=== PATIENT | male | born 1955 | race Caucasian/White ===

== ENCOUNTER 2017-05-21 00:10 | Day surgery (SDC) | payer MEDICARE, SELFPAY ==
[~2017-05-21 00:10] MED LIST: 5fu IV; ALBU90OI INH; Azithromycin250 MG PO; B Complex1 EAC2; CYAN100 PO; DULO60; FILG480I; GABA300 PO; IBUP400; OXALIPLATIN IV; SERT100; SERT100 PO; SERT50 PO; TERB24TC TOP; TIOT18 INH; Zoloft100 MG PO
[2017-05-21] MEDS ORDERED: PRAZ1 PO (09:10)
== END 2017-05-21 09:07 | disposition home or self-care (01) ==
LOC: ATC 00:10
DX: C20 Malignant neoplasm of rectum (principal); K12.30 Oral mucositis (ulcerative), unspecified; R91.1 Solitary pulmonary nodule; N39.0 Urinary tract infection, site not specified; Z79.899 Other long term (current) drug therapy
CPT/HCPCS: 96523; J1642

== ENCOUNTER 2017-06-15 08:49 | Inpatient (IN) | payer MEDICARE, SELFPAY ==
[~2017-06-15] VITALS: Ht 175.3 cm; Wt 88.0 kg
[~2017-06-15 08:49] MED LIST changes: +PRAZ1 PO
[2017-07-03] MEDS ORDERED: Desyrel50 MG PO (14:01)
[2017-07-03] MEDS ORDERED: Hair, Skin & N1 EACH PO (14:02)
[2017-07-03] MEDS ORDERED: PROBIOTIC1 EAC1 PO (14:03)
[2017-07-23] MEDS ORDERED: TIOT18 INH (10:41)
[2017-07-25 04:48] LABS: BASOPHILS PERCENT AUTO 0 % (0-2); EOSINOPHILS PERCENT AUTO 0 % (0-6); Hematocrit 39.1 % (37.0-53.0); Hemoglobin 13.4 g/dL (13.5-17.5); IMMATURE GRAN ABSOLUTE AUTO 0.03 K/mm3 (0.00-0.10); IMMATURE GRAN PERCENT AUTO 0 % (0-1); LYMPHOCYTES ABSOLUTE AUTO 1.14 K/mm3 (0.84-5.20); LYMPHOCYTES PERCENT AUTO 11 % (21-46); MONOCYTES ABSOLUTE AUTO 0.93 K/mm3 (0.16-1.47); MONOCYTES PERCENT AUTO 9 % (4-13); Mean Corpuscular HGB 31.2 pg (26.0-34.0); Mean Corpuscular HGB Conc 34.3 g/dL (31.5-36.5); Mean Corpuscular Volume 91 fL (80-100); Mean Platelet Volume 9.5 fL (9.1-12.4); NEUTROPHILS ABSOLUTE AUTO 8.72 K/mm3 (1.96-9.15); NEUTROPHILS PERCENT AUTO 81 % (41-73); Platelet Count 142 K/mm3 (150-400); RDW Coefficient Variation 12.5 % (11.7-14.2); White Blood Cell Count 10.82 K/mm3 (4.00-11.30)
[2017-07-25 05:11] LABS: Anion Gap 8 mmol/L (6-16); Blood Urea Nitrogen 15 mg/dL (8-24); CO2, Blood 26 mmol/L (21-32); Chloride, Blood 106 mmol/L (98-108); Creatinine, Blood 1.15 mg/dL (0.60-1.20); Glomerular Filtration Rate >60 (60-); Glucose, Blood 137 mg/dL (70-99); Potassium, Blood 4.4 mmol/L (3.5-5.5); Sodium, Blood 140 mmol/L (136-145)
[2017-07-25] MEDS ORDERED: OXYC5 PO (15:21)
[2017-07-25] MEDS ORDERED: DOCU100 PO (15:23)
[2017-07-25] MEDS ORDERED: ASPI325 PO (15:23)
== END 2017-07-25 16:06 | disposition home or self-care (01) | DRG 470 ==
LOC: SURS 07-24 05:53 → PRE IP 07-24 07:30 → SURS 07-24 11:07
PROVIDERS: Orthopaedic Surgery
PROC: 8E0YXBZ Computer Assisted Procedure of Lower Extremity (ICD-10-PCS; 2017-07-24)
PROC: 0SRB04Z Replacement of Left Hip Joint with Ceramic on Polyethylene Synthetic Substitute, Open Approach (ICD-10-PCS; principal; 2017-07-24 07:30)
DX: M16.12 Unilateral primary osteoarthritis, left hip (principal); G47.30 Sleep apnea, unspecified; J44.9 Chronic obstructive pulmonary disease, unspecified; Z91.030 Bee allergy status; Z88.2 Allergy status to sulfonamides; Z91.048 Other nonmedicinal substance allergy status; Z79.899 Other long term (current) drug therapy; Z87.891 Personal history of nicotine dependence
CPT/HCPCS: 36415; 72170; 80048; 85025; 86850; 86900; 86901; 88300; 94640; 94760; 97110; 97116; 97161; 97530; C1713; C1776; G8978; G8979; J0171; J0690; J0735; J1100; J1885; J2250; J2370; J2405; J2795; J3010; J7120

== ENCOUNTER 2017-06-20 00:25 | Day surgery (SDC) | payer MEDICARE, SELFPAY | END 2017-06-20 09:04 | disposition home or self-care (01) | LOC: ATC 00:25 | DX: Z45.2 Encounter for adjustment and management of vascular access device (principal); C20 Malignant neoplasm of rectum; N39.0 Urinary tract infection, site not specified | CPT/HCPCS: 96523; J1642 ==

== ENCOUNTER 2017-07-18 01:49 | Day surgery (SDC) | payer MEDICARE, SELFPAY ==
[~2017-07-18 01:49] MED LIST changes: +Desyrel50 MG PO; +Hair, Skin & N1 EACH PO; +PROBIOTIC1 EAC1 PO
== END 2017-07-18 10:41 | disposition home or self-care (01) ==
LOC: ATC 01:49
DX: Z45.2 Encounter for adjustment and management of vascular access device (principal)
CPT/HCPCS: 96523; J1642

== ENCOUNTER 2017-08-15 00:23 | Day surgery (SDC) | payer MEDICARE, SELFPAY ==
[~2017-08-15 00:23] MED LIST changes: +ASPI325 PO; +DOCU100 PO; +OXYC5 PO
[2017-08-15] MEDS ORDERED: OXYC5 (10:42)
[2017-08-15] MEDS ORDERED: ATOR10 PO (10:43)
== END 2017-08-15 10:54 | disposition home or self-care (01) ==
LOC: ATC 00:23
DX: Z45.2 Encounter for adjustment and management of vascular access device (principal); C20 Malignant neoplasm of rectum; N39.0 Urinary tract infection, site not specified
CPT/HCPCS: 96523; J1642

== ENCOUNTER → 2017-09-01 | Outpatient (CLI) | payer MEDICARE, SELFPAY ==
[~2017-09-01] MED LIST changes: +ATOR10 PO; +OXYC5
== END | disposition home or self-care (01) ==
LOC: LAB EV 11:01 → LAB SHORT 11:01
DX: N39.0 Urinary tract infection, site not specified (principal)
CPT/HCPCS: 87077; 87086; 87186

== ENCOUNTER 2017-10-05 07:35 | Day surgery (SDC) | payer MEDICARE, SELFPAY ==
[~2017-10-05] VITALS: Ht 175.3 cm; Wt 88.5 kg
== END 2017-10-05 22:39 | disposition home or self-care (01) ==
LOC: ORSCMMR 07:35 → ORD 09:15 → ORSCMMR 09:15
PROVIDERS: Surgery
PROC: 0DJD8ZZ Inspection of Lower Intestinal Tract, Via Natural or Artificial Opening Endoscopic (ICD-10-PCS; principal; 2017-10-05 09:15)
DX: Z12.11 Encounter for screening for malignant neoplasm of colon (principal); Z85.048 Personal history of other malignant neoplasm of rectum, rectosigmoid junction, and anus; G47.33 Obstructive sleep apnea (adult) (pediatric); E78.5 Hyperlipidemia, unspecified; Z79.899 Other long term (current) drug therapy
CPT/HCPCS: J7120

== ENCOUNTER 2022-12-08 09:53 | Day surgery (SDC) | payer MEDICARE ==
[~2022-12-08] VITALS: Ht 175.3 cm; Wt 90.6 kg
[2022-12-08] MEDS ORDERED: HYDCHL25 PO (10:21)
[2022-12-08] MEDS ORDERED: ASPI81CH PO (10:21)
[2022-12-08] MEDS ORDERED: TIZA4 PO (10:21)
[2022-12-08 12:35] VITALS: BP 117/78
== END 2022-12-08 12:36 | disposition home or self-care (01) ==
LOC: ORSCSDS 09:53 → ORD 12:00 → ORSCSDS 12:00
PROVIDERS: Surgery
PROC: 0DJD8ZZ Inspection of Lower Intestinal Tract, Via Natural or Artificial Opening Endoscopic (ICD-10-PCS; principal; 2022-12-08 11:30)
DX: Z12.11 Encounter for screening for malignant neoplasm of colon (principal); Z85.038 Personal history of other malignant neoplasm of large intestine; J44.9 Chronic obstructive pulmonary disease, unspecified; I10 Essential (primary) hypertension; E78.5 Hyperlipidemia, unspecified; G47.30 Sleep apnea, unspecified; Z87.891 Personal history of nicotine dependence; Z79.82 Long term (current) use of aspirin; Z79.899 Other long term (current) drug therapy
CPT/HCPCS: J2704; J7120

== ENCOUNTER 2023-01-03 05:59 | Day surgery (SDC) | payer MEDICARE ==
[2023-01-03] VITALS (14 sets, daily range): BP systolic 75–201; BP diastolic 52–172
[~2023-01-03] VITALS: Ht 174 cm; Wt 90.8 kg
[~2023-01-03 05:59] MED LIST changes: +ASPI81CH PO; +ATOR20 PO; +HYDCHL25 PO; +TIZA4 PO
--- NOTE | 2023-01-03 08:17 | NUR ---
History, Chart, Medications and Allergies reviewed before start of procedure. Patient confirms NPO status and agrees with scheduled surgery. Pre-Op teaching done. Pt verbalizes understanding. PT IN SDS VIA WHEELCHAIR, AMB INDEPENDENTLY WITH SBA. Patient reports completing Chlorhexadine shower X5 prior to admission to hospital. DENTURES REMOVED LABELED AND TRANSFERED TO PACU.
--- NOTE | 2023-01-03 08:42 | NUR ---
01/03/23 0842 Mell Dinero PRIOR TO ARRIVING IN THE OR PATIENT RECEIVED VANCO 1GM IV IN THE PREOP SETTING.
--- NOTE | 2023-01-03 11:26 | NUR ---
PATIENT ARRIVED FROM PACU TODAY AT 1120. POD 0 RIGHT TOTAL HIP-POSTERIOR PATIENT IS A&OX4. VS ARE WNL AND IS ON RA. PATIENT HAD A SPINAL DURING THE PROCEDURE AND IS ABLE TO WIGGLE HIS TOES BUT REPORTS "I'M STILL PRETTY NUMB". PATIENT DENIES PAIN AT THIS TIME. HIS RIGHT HIP HAS X3 GAUZE WITH FOAM TAPE THAT IS C/D/I. BLE ARE WARM TO TOUCH AND HAVE STRONG PEDAL PULSES. HE IS LAYING IN BED WITH CALL LIGHT IN REACH AND SPOUSE AT BEDSIDE.
[2023-01-03] MEDS ORDERED: DULOXETINE HCL60 M1 PO (13:07)
[2023-01-03] MEDS ORDERED: PRAZ2 PO (13:07)
[2023-01-03] MEDS ORDERED: GABAPENTIN600 MG PO (13:10)
[2023-01-03] MEDS ORDERED: ATORVASTATIN CA20 MG PO (13:10)
[2023-01-03] MEDS ORDERED: HYDROCHLOROTH12.5 MG PO (13:11)
[2023-01-03] MEDS ORDERED: ASPI81CH PO (13:12)
[2023-01-03] MEDS ORDERED: ALBU90OI INH (13:13)
--- NOTE | 2023-01-03 14:22 | NUR ---
SHIFT SUMMARY: POD 0 RIGHT TOTAL HIP- POSTERIOR PATIENT IS A&OX4. VS ARE WNL AND IS ON RA. PATIENT HAS FULL SENSATION TO ALL EXTREMITIES AND DENIES NUMBNESS OR TINGLING. AT THIS TIME PATIENT DENIES PAIN WELL. HIS RIGHT HIP HAS X3 GAUZE WITH FOAM TAPE THAT ARE C/D/I. PEDAL PULSES STRONG AND WARM TO TOUCH. HE WAS ABLE TO WORK WITH OCCUPATIONAL THERAPY TODAY. HE IS TOLERATING PO INTAKE. HE IS SITTING UP IN A CHAIR WITH CALL LIGHT IN REACH AND SPOUSE AT BEDSIDE.
[2023-01-04] VITALS: BP 99/68
--- NOTE | 2023-01-04 04:33 | NUR ---
SHIFT SUMMARY POD 1 R POSTERIOR JAIMIE. NO ACUTE CHANGES OVERNIGHT. VS WNL FOR PT. 3 INCISIONS c GAUZE/FOAM TAPE, C/D/I. RT SET-UP HOME CPAP, O2 SAT >92% ON BIOX. TOLERATING ORALS. AMBULATES STANDBY ASSIST c FWW. PT TO WORK WITH OT LATER TODAY, ENCOURAGE POSTERIOR HIP PRECAUTIONS. ANTICIPATED D/C LATER TODAY. CALL LIGHT WITHIN REACH, BED IN LOWEST POSITION, WILL REPORT TO DAY RN.
[2023-01-04 05:15] VITALS: BP 119/73
[2023-01-04 06:10] LABS: BASOPHILS ABSOLUTE AUTO 0.01 K/mm3 (0.00-0.23); BASOPHILS PERCENT AUTO 0 % (0-2); EOSINOPHILS PERCENT AUTO 0 % (0-6); Hematocrit 37.4 % (37.0-53.0); Hemoglobin 13.3 g/dL (13.5-17.5); IMMATURE GRAN ABSOLUTE AUTO 0.03 K/mm3 (0.00-0.10); IMMATURE GRAN PERCENT AUTO 0 % (0-1); LYMPHOCYTES ABSOLUTE AUTO 1.05 K/mm3 (0.84-5.20); LYMPHOCYTES PERCENT AUTO 12 % (21-46); MONOCYTES PERCENT AUTO 9 % (4-13); Mean Corpuscular HGB 31.7 pg (26.0-34.0); Mean Corpuscular HGB Conc 35.6 g/dL (31.5-36.5); Mean Corpuscular Volume 89 fL (80-100); Mean Platelet Volume 9.6 fL (9.1-12.4); NEUTROPHILS ABSOLUTE AUTO 6.97 K/mm3 (1.96-9.15); NEUTROPHILS PERCENT AUTO 79 % (41-73); Platelet Count 145 K/mm3 (150-400); RDW Coefficient Variation 12.6 % (11.7-14.2); RDW Standard Deviation 41.3 fL (35.1-46.3); White Blood Cell Count 8.86 K/mm3 (4.00-11.30)
[2023-01-04 06:34] LABS: Bun/Creatinine Ratio 14.8 (12.0-20.0); Calcium, Blood 9.1 mg/dL (8.5-10.1); Creatinine, Blood 1.22 mg/dL (0.60-1.20); Magnesium, Blood 2.2 mg/dL (1.6-2.4); Potassium, Blood 4.3 mmol/L (3.5-5.5)
[2023-01-04 07:23] VITALS: BP 113/90
[2023-01-04 07:24] VITALS: BP 125/71
--- NOTE | 2023-01-04 12:10 | NUR ---
DISCHARGE PT DISCHARGED HOME FROM UNIT AT APROX 1029. PT GIVEN WRITTEN AND VERBAL DC INSTRUCTIONS AND VERBALIZED UNDERSTANDING. IV REMOVED. WC TO CAR
== END 2023-01-04 12:01 | disposition home or self-care (01) ==
LOC: ORSCMMR 05:59 → ORD 07:30 → SURS 11:01 → ORSCMMR 11:02 → SURS 01-04 11:09 → ORSCMMR 01-04 11:09
PROVIDERS: Orthopaedic Surgery
PROC: 0SR90JA Replacement of Right Hip Joint with Synthetic Substitute, Uncemented, Open Approach (ICD-10-PCS; principal; 2023-01-03 07:30)
DX: M16.11 Unilateral primary osteoarthritis, right hip (principal); Z96.642 Presence of left artificial hip joint; G47.33 Obstructive sleep apnea (adult) (pediatric); Z85.038 Personal history of other malignant neoplasm of large intestine; I10 Essential (primary) hypertension; E78.00 Pure hypercholesterolemia, unspecified; J44.9 Chronic obstructive pulmonary disease, unspecified; Z79.899 Other long term (current) drug therapy
CPT/HCPCS: 36415; 72170; 80048; 83735; 85025; 94660; 94762; 97110; 97162; 97165; 97530; 97535; A9270; C1713; C1776; J0171; J0690; J0735; J1100; J1885; J2250; J2405; J2704; J2795; J3010; J3370; J7120

== ENCOUNTER → 2023-01-19 | Outpatient (CLI) | payer MEDICARE, OTHER ==
[~2023-01-19] MED LIST changes: +ATORVASTATIN CA20 MG PO; +DULOXETINE HCL60 M1 PO; +GABAPENTIN600 MG PO; +HYDROCHLOROTH12.5 MG PO; +PRAZ2 PO
[2023-01-21 00:10] LABS: CHLAMYDIA TRACHOMATIS, NAA Negative (Negative)
== END | disposition home or self-care (01) ==
LOC: LAB 16:16 → LAB SHORT 16:16
PROVIDERS: Family Medicine
DX: R30.0 Dysuria (principal)
CPT/HCPCS: 87491; 87591

== ENCOUNTER → 2024-02-08 | Outpatient (CLI) | payer OTHER | END | disposition home or self-care (01) | LOC: LAB SHORT 15:28 → LAB 15:28 | DX: N39.0 Urinary tract infection, site not specified (principal); R31.9 Hematuria, unspecified | CPT/HCPCS: 87077; 87086; 87186 ==

== ENCOUNTER 2024-02-16 00:14 | Day surgery (SDC) | payer OTHER ==
[2024-02-16] MEDS ORDERED: Ertapenem Sodium 1,000 MG in NS 50 ML IV SCH (01:00)
[2024-02-16] MEDS ORDERED: DULO60 PO (08:06)
[2024-02-16] MEDS ORDERED: LOSA50 PO (08:07)
[2024-02-16] MEDS ORDERED: TIZA4 PO (08:08)
[2024-02-16] MEDS ORDERED: ERTAPENEM1 G1 IV (08:10)
== END 2024-02-16 16:10 | disposition home or self-care (01) ==
LOC: ATC 00:14
DX: N39.0 Urinary tract infection, site not specified (principal); B96.1 Klebsiella pneumoniae [K. pneumoniae] as the cause of diseases classified elsewhere; Z16.12 Extended spectrum beta lactamase (ESBL) resistance; Z91.030 Bee allergy status; Z91.048 Other nonmedicinal substance allergy status; Z79.82 Long term (current) use of aspirin; Z79.899 Other long term (current) drug therapy
CPT/HCPCS: 96365; J1335

== ENCOUNTER 2024-02-17 15:02 | Day surgery (SDC) | payer OTHER ==
[~2024-02-17 15:02] MED LIST changes: +DULO60 PO; +ERTAPENEM1 G1 IV; +Ertapenem Sodium 1,000 MG in NS 50 ML IV SCH; +LOSA50 PO
[2024-02-17 15:33] VITALS: BP 118/69
== END 2024-02-17 15:36 | disposition home or self-care (01) ==
LOC: ATC 15:02
DX: N39.0 Urinary tract infection, site not specified (principal); B96.1 Klebsiella pneumoniae [K. pneumoniae] as the cause of diseases classified elsewhere; Z16.12 Extended spectrum beta lactamase (ESBL) resistance; Z79.82 Long term (current) use of aspirin; Z79.899 Other long term (current) drug therapy; Z91.030 Bee allergy status; Z91.048 Other nonmedicinal substance allergy status
CPT/HCPCS: 96365; J1335

== ENCOUNTER 2024-02-18 02:53 | Day surgery (SDC) | payer OTHER ==
[2024-02-18 13:24] VITALS: BP 114/76
== END 2024-02-18 13:50 | disposition home or self-care (01) ==
LOC: ATC 02:53
DX: N39.0 Urinary tract infection, site not specified (principal); B96.1 Klebsiella pneumoniae [K. pneumoniae] as the cause of diseases classified elsewhere; Z16.12 Extended spectrum beta lactamase (ESBL) resistance; J43.9 Emphysema, unspecified; E78.00 Pure hypercholesterolemia, unspecified; Z91.048 Other nonmedicinal substance allergy status; Z91.030 Bee allergy status; Z79.82 Long term (current) use of aspirin; Z79.899 Other long term (current) drug therapy
CPT/HCPCS: 96365; J1335

== ENCOUNTER 2024-02-19 01:14 | Day surgery (SDC) | payer OTHER ==
[2024-02-19 13:28] VITALS: BP 108/64
== END 2024-02-19 13:48 | disposition home or self-care (01) ==
LOC: ATC 01:14
DX: N39.0 Urinary tract infection, site not specified (principal); B96.1 Klebsiella pneumoniae [K. pneumoniae] as the cause of diseases classified elsewhere; Z16.12 Extended spectrum beta lactamase (ESBL) resistance; E78.00 Pure hypercholesterolemia, unspecified; Z91.030 Bee allergy status; Z91.048 Other nonmedicinal substance allergy status; Z79.82 Long term (current) use of aspirin; Z79.899 Other long term (current) drug therapy
CPT/HCPCS: 96365; J1335

== ENCOUNTER 2024-02-20 04:16 | Day surgery (SDC) | payer OTHER ==
[2024-02-20 13:25] VITALS: BP 135/73
== END 2024-02-20 13:50 | disposition home or self-care (01) ==
LOC: ATC 04:16
DX: N39.0 Urinary tract infection, site not specified (principal); B96.1 Klebsiella pneumoniae [K. pneumoniae] as the cause of diseases classified elsewhere; Z16.12 Extended spectrum beta lactamase (ESBL) resistance; Z79.82 Long term (current) use of aspirin; Z79.899 Other long term (current) drug therapy
CPT/HCPCS: 96365; J1335

== ENCOUNTER 2024-02-21 01:46 | Day surgery (SDC) | payer OTHER ==
[2024-02-21 13:24] VITALS: BP 129/84
--- NOTE | 2024-02-21 13:50 | NUR ---
PT IV LEFT IN PER PT REQUEST. WILL RETURN TOMORROW FOR INFUSION. IV SITE FREE OF REDNESS/SWELLING. DECLINES PAIN. SECURED WITH TEGADERM. PADDED WITH GAUZE AND COBAN.
== END 2024-02-21 13:48 | disposition home or self-care (01) ==
LOC: ATC 01:46
DX: N39.0 Urinary tract infection, site not specified (principal); A49.9 Bacterial infection, unspecified; Z79.899 Other long term (current) drug therapy; Z91.030 Bee allergy status; Z91.048 Other nonmedicinal substance allergy status
CPT/HCPCS: 96365; J1335

== ENCOUNTER 2024-02-22 04:24 | Day surgery (SDC) | payer OTHER ==
[2024-02-22 13:23] VITALS: BP 132/79
== END 2024-02-22 13:41 | disposition home or self-care (01) ==
LOC: ATC 04:24
DX: N39.0 Urinary tract infection, site not specified (principal); A49.9 Bacterial infection, unspecified
CPT/HCPCS: 96365; J1335